=== PATIENT | female | born 1965 ===

== ENCOUNTER 2022-08-10 15:28 | Emergency (ER) | payer OTHER ==
[~2022-08-10] VITALS: Ht 160 cm; Wt 106.6 kg
[2022-08-10] MEDS ORDERED: CEPH500 PO (17:58)
== END 2022-08-10 18:12 | disposition home or self-care (01) ==
LOC: ER 15:28
DX: L03.011 Cellulitis of right finger (principal)
CPT/HCPCS: A9270

== ENCOUNTER 2023-06-07 18:55 | Emergency (ER) | payer OTHER ==
[~2023-06-07] VITALS: Ht 160 cm; Wt 104.3 kg
[~2023-06-07 18:55] MED LIST: CEPH500 PO
[2023-06-07] MEDS ORDERED: METF500 (19:52)
[2023-06-07] MEDS ORDERED: GABA100 (19:52)
[2023-06-07] MEDS ORDERED: BLOOD PRESSURE MED (19:53)
[2023-06-07 21:26] LABS: Bun/Creatinine Ratio 20.9 (12.0-20.0); Creatinine, Blood 0.43 mg/dL (0.40-1.00)
[2023-06-07] MEDS ORDERED: GABA300 PO (21:59)
[2023-06-07] MEDS ORDERED: GLUCOPHAGE1000 M1 PO (21:59)
[2023-06-07] MEDS ORDERED: Robaxin750 MG PO (21:59)
[2023-06-07] MEDS ORDERED: IBUP600 PO (21:59)
[2023-06-07 23:00] VITALS: BP 146/90
== END 2023-06-07 23:00 | disposition home or self-care (01) ==
LOC: ER 18:55
PROVIDERS: Student in an Organized Health Care Education/Training Program
DX: E11.65 Type 2 diabetes mellitus with hyperglycemia (principal); G44.89 Other headache syndrome; M54.2 Cervicalgia; Z76.0 Encounter for issue of repeat prescription; Z79.84 Long term (current) use of oral hypoglycemic drugs
CPT/HCPCS: 70450; 80048; 82607; 83735; 96374; 99284-25; A9270; J1885

== ENCOUNTER 2025-07-23 18:25 | Emergency (ER) | payer OTHER ==
[~2025-07-23] VITALS: Ht 160 cm; Wt 108.9 kg
[~2025-07-23 18:25] MED LIST changes: +BLOOD PRESSURE MED; +GABA100; +GABA300 PO; +GLUCOPHAGE1000 M1 PO; +IBUP600 PO; +METF500; +Robaxin750 MG PO
[2025-07-23 19:04] LABS: BASOPHILS ABSOLUTE AUTO 0.03 K/mm3 (0.00-0.23); BASOPHILS PERCENT AUTO 0 % (0-2); EOSINOPHILS ABSOLUTE AUTO 0.04 K/mm3 (0.00-0.68); EOSINOPHILS PERCENT AUTO 0 % (0-6); Hematocrit 40.0 % (33.0-51.0); Hemoglobin 13.7 g/dL (11.5-16.0); IMMATURE GRAN ABSOLUTE AUTO 0.03 K/mm3 (0.00-0.10); IMMATURE GRAN PERCENT AUTO 0 % (0-1); LYMPHOCYTES ABSOLUTE AUTO 1.64 K/mm3 (0.84-5.20); LYMPHOCYTES PERCENT AUTO 13 % (21-46); MONOCYTES ABSOLUTE AUTO 1.60 K/mm3 (0.16-1.47); MONOCYTES PERCENT AUTO 13 % (4-13); Mean Corpuscular HGB Conc 34.3 g/dL (31.5-36.5); Mean Corpuscular Volume 86 fL (80-100); NEUTROPHILS ABSOLUTE AUTO 9.18 K/mm3 (1.96-9.15); NEUTROPHILS PERCENT AUTO 73 % (41-73); NRBC ABSOLUTE 0.00 K/mm3 (0.00-0.02); NRBC Auto 0.0 /100 WBC (0.0-0.2); Platelet Count 287 K/mm3 (150-400); RDW Coefficient Variation 11.8 % (11.7-14.2); RDW Standard Deviation 37.4 fL (35.1-46.3)
[2025-07-23 19:18] LABS: Influenza A, PCR NEGATIVE (NEGATIVE); Influenza B, PCR NEGATIVE (NEGATIVE); Resp Syncytial Virus, PCR NEGATIVE (NEGATIVE); SARS-Cov-2 (COVID-19) PCR, MMC NEGATIVE (NEGATIVE)
[2025-07-23 19:19] LABS: Alanine Aminotransfer (ALT/SGP 18.0 U/L (12-78); Albumin, Blood 3.5 g/dL (3.4-5.0); Albumin/Globulin Ratio 0.8 (0.8-1.8); Anion Gap 5.0 mmol/L (3-11); Aspartate Aminotrans (AST/SGOT 13.0 U/L (12-37); Bilirubin, Total 1.0 mg/dL (0.1-1.0); Blood Urea Nitrogen 5.0 mg/dL (8-24); CO2, Blood 33.0 mmol/L (21-32); Calcium, Blood 8.5 mg/dL (8.5-10.1); Chloride, Blood 98.0 mmol/L (98-108); Creatinine, Blood 0.63 mg/dL (0.40-1.00); Globulin, Blood 4.6 g/dL (2.2-4.0); Glucose, Blood 172.0 mg/dL (70-99); Potassium, Blood 3.2 mmol/L (3.5-5.5); Sodium, Blood 133.0 mmol/L (136-145); Total Protein, Blood 8.1 g/dL (6.4-8.2)
[2025-07-23] MEDS ORDERED: Ondansetron HCl 2 MG / ML 2ML Vial IV ONE (20:00)
[2025-07-23] MEDS ORDERED: Ketorolac Tromethamine 15mg Vial IV ONE (20:00)
[2025-07-23 20:57] LABS: Source, Urine Clean Catch
[2025-07-23 21:01] LABS: Bilirubin, Urine Neg (Neg); Color, Urine Yellow (P-Yellow); Glucose Qualitative, Urine Neg (Neg); Ketones, Urine Neg (Neg); Leukocyte Esterase, Urine 3+ (Neg); Protein, Urine 2+ (Neg); Specific Gravity, Urine 1.010 (1.003-1.022); Urobilinogen, Urine 1+ (Normal)
[2025-07-23 21:13] LABS: Red Blood Cells, Urine 0-2 /hpf (0-2); White Blood Cells, Urine TNTC /hpf (0-5)
[2025-07-23] MEDS ORDERED: BACTRIM DS TAB1 EAC1 PO (21:27)
[2025-07-23] MEDS ORDERED: Trimethoprim/Sulfamethoxazole DS Tab PO ONE (21:30)
[2025-07-23] MEDS ORDERED: Morphine Sulfate 4 MG/1 ML Injection IV ONE (21:35)
[2025-07-23] MEDS ORDERED: ONDA4ODT MM ×2 (21:35)
[2025-07-23] MEDS ORDERED: RX Prepack 2 Tabs Ondansetron ODT 4MG UD ONE (21:35)
[2025-07-23 22:15] VITALS: BP 141/67
== END 2025-07-23 22:24 | disposition home or self-care (01) ==
LOC: ER 18:25
PROVIDERS: Physician Assistant
DX: N30.00 Acute cystitis without hematuria (principal); Z79.84 Long term (current) use of oral hypoglycemic drugs; Z79.899 Other long term (current) drug therapy
CPT/HCPCS: 36415; 74177; 80053; 81001; 82947; 83735; 85025; 87040; 87077; 87086; 87186; 87637; 93005; 93010; 96360; 96361; 96372; 96374-59; 96375; 99284-25; A9270; G0378; J0696; J1650; J1815; J1885; J2270; J2405; J7030; J7120; Q9967

== ENCOUNTER 2025-07-26 09:59 | Observation (INO) | payer OTHER ==
[~2025-07-26] VITALS: Ht 160 cm; Wt 100.4 kg
[~2025-07-26 09:59] MED LIST changes: +BACTRIM DS TAB1 EAC1 PO; +ONDA4ODT MM
[2025-07-26 10:26] VITALS: BP 129/80
[2025-07-26] MEDS ORDERED: HYDROcodone 5-APAP 325 TAB PO PRN (12:10)
[2025-07-26] MEDS ORDERED: FLU VACC TS2025-26(6MOS UP)/PF 45 MCG/0.5 ML SYRINGE IM SCH (12:10)
[2025-07-26] MEDS ORDERED: NS 1,000 ML IV SCH (12:10)
[2025-07-26] MEDS ORDERED: CefTRIAXone Sodium 1,000 MG in NS 100 ML IV SCH (12:30)
[2025-07-26 12:40] LABS: BASOPHILS ABSOLUTE AUTO 0.04 K/mm3 (0.00-0.23); BASOPHILS PERCENT AUTO 1 % (0-2); EOSINOPHILS ABSOLUTE AUTO 0.14 K/mm3 (0.00-0.68); EOSINOPHILS PERCENT AUTO 2 % (0-6); Hematocrit 39.1 % (33.0-51.0); Hemoglobin 13.4 g/dL (11.5-16.0); IMMATURE GRAN ABSOLUTE AUTO 0.01 K/mm3 (0.00-0.10); IMMATURE GRAN PERCENT AUTO 0 % (0-1); LYMPHOCYTES ABSOLUTE AUTO 2.18 K/mm3 (0.84-5.20); LYMPHOCYTES PERCENT AUTO 25 % (21-46); MONOCYTES ABSOLUTE AUTO 1.05 K/mm3 (0.16-1.47); MONOCYTES PERCENT AUTO 12 % (4-13); Mean Corpuscular HGB Conc 34.3 g/dL (31.5-36.5); Mean Corpuscular Volume 86 fL (80-100); NEUTROPHILS ABSOLUTE AUTO 5.42 K/mm3 (1.96-9.15); NEUTROPHILS PERCENT AUTO 61 % (41-73); NRBC ABSOLUTE 0.00 K/mm3 (0.00-0.02); NRBC Auto 0.0 /100 WBC (0.0-0.2); Platelet Count 307 K/mm3 (150-400); RDW Coefficient Variation 11.9 % (11.7-14.2); RDW Standard Deviation 37.1 fL (35.1-46.3)
[2025-07-26] MEDS ORDERED: ATOR40TA PO ×2 (12:46)
[2025-07-26] MEDS ORDERED: INSULIN AS100 UNIT/8 SC ×2 (12:48)
[2025-07-26] MEDS ORDERED: BASAGLAR K100 UNIT/3 SC ×2 (12:49)
[2025-07-26] MEDS ORDERED: Prinivil10 MG PO ×2 (12:50)
[2025-07-26 13:09] LABS: Alanine Aminotransfer (ALT/SGP 29.0 U/L (12-78); Albumin, Blood 3.2 g/dL (3.4-5.0); Albumin/Globulin Ratio 0.7 (0.8-1.8); Anion Gap 6.0 mmol/L (3-11); Aspartate Aminotrans (AST/SGOT 31.0 U/L (12-37); Bilirubin, Total 0.6 mg/dL (0.1-1.0); Blood Urea Nitrogen 9.0 mg/dL (8-24); CO2, Blood 31.0 mmol/L (21-32); Calcium, Blood 8.8 mg/dL (8.5-10.1); Chloride, Blood 100.0 mmol/L (98-108); Creatinine, Blood 0.63 mg/dL (0.40-1.00); Globulin, Blood 4.6 g/dL (2.2-4.0); Glucose, Blood 100.0 mg/dL (70-99); Potassium, Blood 3.3 mmol/L (3.5-5.5); Sodium, Blood 134.0 mmol/L (136-145); Total Protein, Blood 7.8 g/dL (6.4-8.2)
[2025-07-26 15:36] VITALS: BP 117/70
--- NOTE | 2025-07-26 18:17 | NUR ---
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 STANDBY ASSIST WHEN OUT OF BED. ORAL PAIN MANAGEMENT PRN FOR LOWER BACK PAIN. CALL LIGHT IN REACH, BED LOWEST POSITION, HOURLY ROUNDING AND BEDSIDE TABLE IN REACH.
[2025-07-26 19:35] VITALS: BP 140/67
[2025-07-27 03:40] VITALS: BP 124/69
--- NOTE | 2025-07-27 04:26 | NUR ---
COMPENSATION SPECIALIST SUMMARY PT A&OX4, VSS. ABLE TO COMMUNICATE NEEDS EFFECTIVELY. PT HAS BEEN ASLEEP FOR MOST OF THE SHIFT. CHEST RISE/RESPIRATIONS NOTED. DAUGHTER AT BEDSIDE FOR TRANSLATION. DECLINATION OF [employer] TE[employer]ER SIGNED AND PLACED IN CHART. REMAINS ON BEDREST W/ BATHROOM PRIVILEDGES. SBA FOR IV WHEN UP. PER NURSE NOTIFY, AM RN TO DISCUSS W/ DR. MARTIN REGARDING PT'S LONG ACTING INSULIN DOSE. NS CONT INF RUNNING AT 150 ML/HR. BED RAILS UP X 2, BED IN LOWEST POSITION, BED WHEELS LOCKED, PERSONAL BELONGINGS AND CALL LIGHT WITHIN REACH FOR SAFETY.
[2025-07-27 06:35] LABS: BASOPHILS ABSOLUTE AUTO 0.04 K/mm3 (0.00-0.23); BASOPHILS PERCENT AUTO 1 % (0-2); EOSINOPHILS ABSOLUTE AUTO 0.19 K/mm3 (0.00-0.68); EOSINOPHILS PERCENT AUTO 2 % (0-6); Hematocrit 34.7 % (33.0-51.0); Hemoglobin 11.8 g/dL (11.5-16.0); IMMATURE GRAN ABSOLUTE AUTO 0.01 K/mm3 (0.00-0.10); IMMATURE GRAN PERCENT AUTO 0 % (0-1); LYMPHOCYTES ABSOLUTE AUTO 2.08 K/mm3 (0.84-5.20); LYMPHOCYTES PERCENT AUTO 26 % (21-46); MONOCYTES ABSOLUTE AUTO 0.98 K/mm3 (0.16-1.47); MONOCYTES PERCENT AUTO 12 % (4-13); Mean Corpuscular HGB Conc 34.0 g/dL (31.5-36.5); Mean Corpuscular Volume 86 fL (80-100); NEUTROPHILS ABSOLUTE AUTO 4.74 K/mm3 (1.96-9.15); NEUTROPHILS PERCENT AUTO 59 % (41-73); NRBC ABSOLUTE 0.00 K/mm3 (0.00-0.02); NRBC Auto 0.0 /100 WBC (0.0-0.2); Platelet Count 308 K/mm3 (150-400); RDW Coefficient Variation 11.8 % (11.7-14.2); RDW Standard Deviation 37.5 fL (35.1-46.3)
[2025-07-27 06:52] LABS: Alanine Aminotransfer (ALT/SGP 30.0 U/L (12-78); Albumin, Blood 2.6 g/dL (3.4-5.0); Albumin/Globulin Ratio 0.6 (0.8-1.8); Anion Gap 6.0 mmol/L (3-11); Aspartate Aminotrans (AST/SGOT 28.0 U/L (12-37); Bilirubin, Total 0.4 mg/dL (0.1-1.0); Blood Urea Nitrogen 9.0 mg/dL (8-24); CO2, Blood 30.0 mmol/L (21-32); Calcium, Blood 8.4 mg/dL (8.5-10.1); Chloride, Blood 104.0 mmol/L (98-108); Creatinine, Blood 0.57 mg/dL (0.40-1.00); Globulin, Blood 4.2 g/dL (2.2-4.0); Glucose, Blood 119.0 mg/dL (70-99); Magnesium, Blood 2.5 mg/dL (1.6-2.4); Potassium, Blood 3.8 mmol/L (3.5-5.5); Sodium, Blood 136.0 mmol/L (136-145); Total Protein, Blood 6.8 g/dL (6.4-8.2)
[2025-07-27 07:19] VITALS: BP 131/80
[2025-07-27] MEDS ORDERED: Insulin Human Lispro 100 Units/ML 3ML Syringe SC SCH ×2 (07:30→08:30)
[2025-07-27] MEDS ORDERED: Ondansetron 4 MG SoluTab MM PRN (08:05)
[2025-07-27] MEDS ORDERED: Enoxaparin 40 MG/0.4 ML SYR SC SCH ×2 (09:00)
[2025-07-27] MEDS ORDERED: MetFORMIN HCl 500 mg PO SCH (09:00)
[2025-07-27] MEDS ORDERED: Insulin Glargine 100 Unit/ML 3 ML SYR SC SCH (09:00)
[2025-07-27] MEDS ORDERED: CEPH500 PO ×2 (10:22)
[2025-07-27] MEDS ORDERED: Polyethylene Glycol 3350 17 gm PO SCH (14:00)
[2025-07-27 15:52] VITALS: BP 143/77
--- NOTE | 2025-07-27 18:11 | NUR ---
PT ALERT AND ORIENTED X4, TAJIK SPEAKING HAS DAUGHTER STAYING AT BEDSIDE WHO ASSISTS WITH TRANSLATION, CONTINUOUS IVF. HOME MEDICATIONS RESTARTED- INSULIN AND ORAL ANTIGLYCEMICS, BOWEL CARE MEDICATIONS GIVEN TODAY. PT STATES HAS MINIMAL PAIN TO LOWER BACK AND HAS NOT REQUESTED PAIN MEDICATIONS THIS SHIFT. HOURLY ROUNDING FOR SAFETY, BED IN LOWEST POSITION, BRAKES ON, CALL LIGHT IN REACH.
[2025-07-27 19:40] VITALS: BP 156/84
[2025-07-28 04:37] VITALS: BP 132/79
--- NOTE | 2025-07-28 06:36 | NUR ---
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 ABLE TO COMMUNICATE NEEDS EFFECTIVELY. PT HAS BEEN ASLEEP FOR MOST OF THE SHIFT. CHEST RISE/RESPIRATIONS NOTED. PT'S DAUGHTER CONTINUES TO BE AT BEDSIDE FOR TRANSLATION. REMAINS ON BEDREST W/ BATHROOM PRIVILEDGES. SBA FOR IV WHEN UP. NS CONT INF CONTINUES TO RUN AT 150 ML/HR. BED RAILS UP X 2, BED IN LOWEST POSITION, BED WHEELS LOCKED, PERSONAL BELONGINGS AND CALL LIGHT WITHIN REACH FOR SAFETY.
[2025-07-28 07:48] VITALS: BP 164/86
[2025-07-28] MEDS ORDERED: MIRALAX17 GM PO ×2 (11:45)
[2025-07-28] MEDS ORDERED: AMOCLA875 PO ×2 (11:46)
[2025-07-28] MEDS ORDERED: VISBIOME 112.51 EACH PO ×2 (11:46)
--- NOTE | 2025-07-28 12:29 | NUR ---
DISCHARGE NOTE: WENT OVER DISCHARGE WITH THE PATIENT AND HER FAMILY. IV WAS REMOVED, PATIENT SHOWERED, GOT DRESSED, AND COLLECTED BELONGINGS. PATIENT WHEELED DOWN BY MAT CUTTER. NO SIGNS OR SYMPTOMS OF DISTRESS DURING DISCHARGE.
== END 2025-07-28 12:20 | disposition home or self-care (01) ==
LOC: MEDS 09:59 → ENPENDDIS 07-28 11:13 → MEDS 07-28 12:20
PROVIDERS: ADMIT Internal Medicine
DX: N10 Acute pyelonephritis (principal); B96.89 Other specified bacterial agents as the cause of diseases classified elsewhere; E11.42 Type 2 diabetes mellitus with diabetic polyneuropathy; K21.9 Gastro-esophageal reflux disease without esophagitis; I10 Essential (primary) hypertension; E11.65 Type 2 diabetes mellitus with hyperglycemia; K59.00 Constipation, unspecified; E87.6 Hypokalemia; Z79.4 Long term (current) use of insulin; Z79.84 Long term (current) use of oral hypoglycemic drugs; Z79.899 Other long term (current) drug therapy
CPT/HCPCS: 36415; 74177; 80053; 81001; 82947; 83735; 85025; 87040; 87077; 87086; 87186; 87637; 93005; 93010; 96360; 96361; 96372; 96374-59; 96375; 99284-25; A9270; G0378; J0696; J1650; J1815; J1885; J2270; J2405; J7030; J7120; Q9967